=== PATIENT | female | born 1990 | race African-American/Black ===

== ENCOUNTER 2016-12-19 07:55 | Emergency (ER) | payer OTHER ==
[~2016-12-19] VITALS: Ht 167.6 cm; Wt 63.5 kg
[2016-12-19 07:55] VITALS: BP_SYST 119
--- NOTE | 2016-12-19 07:55 | NUR ---
Pt to bed 5
--- NOTE | 2016-12-19 08:01 | NUR ---
Pt was exposed to a meningitis at her job and is concerned because she is 3 months . No other injuries/complaints per pt or noted. Addendum: 12/19/16 at 0807 by REID Pt denies fever, headache or any pain.
--- NOTE | 2016-12-19 08:01 | NUR ---
ER at bedside examining patient.
[2016-12-19] MEDS ORDERED: cefTRIAXone 250 MG VIAL IM ONE (08:15)
--- NOTE | 2016-12-19 08:43 | NUR ---
Patient given written and verbal discharge instructions and verbalizes understanding. ER MD discussed with patient the results and treatment provided. Patient in stable condition. ID arm band removed. No Rx given. Patient educated on pain management and to follow up with PMD. Pain Scale 0. Opportunity for questions provided and answered.
[2016-12-19 08:45] VITALS: BP_SYST 120
[2016-12-19] MEDS ORDERED: ONDANSETRON HCL 4 MG/2 ML VIAL IVP ONE (08:45)
== END 2016-12-19 08:45 | disposition home or self-care (01) ==
LOC: SED 07:55
DX: Z20.818 Contact with and (suspected) exposure to other bacterial communicable diseases (principal)
CPT/HCPCS: 96372; 99283; J0696

== ENCOUNTER 2017-02-13 21:12 | Emergency (ER) | payer OTHER ==
[~2017-02-13] VITALS: Ht 167.6 cm; Wt 72.6 kg
[2017-02-13 21:12] VITALS: BP_SYST 148
[2017-02-13] MEDS ORDERED: NACL 0.9% 1,000 ML IV ONE (21:26)
[2017-02-13 21:41] LABS: BASOPHILS % (AUTO) 0.3 % (0.0-2.0); EOSINOPHILS # (AUTO) 0.3 K/uL (0.0-0.4); EOSINOPHILS % (AUTO) 2.5 % (0.0-4.0); HEMATOCRIT 40.2 % (36-48); HEMOGLOBIN 13.2 g/dL (12.0-16.0); LYMPHOCYTES # (AUTO) 2.2 K/uL (1.0-5.5); LYMPHOCYTES % (AUTO) 18.7 % (20.5-51.5); MEAN CORPUSCULAR HEMOGLOBIN 29 pg (27-31); MEAN CORPUSCULAR HGB CONC 33 % (32-36); MEAN CORPUSCULAR VOLUME 87 fL (79.0-98.0); MONOCYTES # (AUTO) 0.6 K/uL (0.0-1.0); MONOCYTES % (AUTO) 5.3 % (1.7-9.3); NEUTROPHILS # (AUTO) 8.8 K/uL (1.8-7.7); NEUTROPHILS % (AUTO) 73.2 % (40.0-70.0); PLATELET COUNT (AUTO) 273 K/uL (130-430); RED BLOOD CELL COUNT(AUTO) 4.63 MIL/uL (4.2-6.2); RED CELL DISTRIBUTION WIDTH 12.7 % (9.0-15.0); WHITE BLOOD COUNT (AUTO) 11.9 K/uL (4.8-10.8)
[2017-02-13 21:47] LABS: CREATININE 0.69 mg/dL (0.55-1.30); POTASSIUM 3.6 mmol/L (3.5-5.1)
[2017-02-13 21:51] LABS: ALBUMIN 3.3 g/dL (3.4-4.8); TOTAL BILIRUBIN 0.2 mg/dL (0.0-1.0)
[2017-02-13 21:54] LABS: BILIRUBIN,URINE NEGATIVE (NEGATIVE); BLOOD, URINE NEGATIVE (NEGATIVE); CLARITY/URINE CLEAR (CLEAR); GLUCOSE,URINE NEGATIVE (NEGATIVE); KETONES,URINE NEGATIVE (NEGATIVE); LEUKOCYTE ESTERASE ,URINE NEGATIVE (NEGATIVE); NITRITE, URINE NEGATIVE (NEGATIVE); PH,URINE 6.5 (5.0-8.0); PROTEIN URINE NEGATIVE (NEGATIVE); UROBILINOGEN,URINE 0.2 (0.2-1.0)
[2017-02-13 22:01] LABS: COLOR,URINE STRAW (YELLOW)
[2017-02-14 00:22] VITALS: BP_SYST 118
== END 2017-02-14 00:22 | disposition home or self-care (01) ==
LOC: SED 21:12
DX: O99.412 Diseases of the circulatory system complicating pregnancy, second trimester (principal); I47.9 Paroxysmal tachycardia, unspecified; Z3A.17 17 weeks gestation of pregnancy
CPT/HCPCS: 36415; 80053; 81003; 85025; 93005; 96360; 99285; J7030